=== PATIENT | female | born 1955 | race Caucasian/White ===

== ENCOUNTER 2019-08-01 14:14 | Outpatient (CLI) | payer OTHER ==
--- NOTE | 2019-08-01 14:58 | RAD ---
LEFT KNEE TWO VIEWS: HISTORY: Bilateral primary osteoarthritis of the knee. Bilateral knee pain, right worse than left. FINDINGS: There are degenerative changes in the left knee, manifested by osteophyte formation and joint space n arrowing, most prominent in the medial tibiofemoral compartment. No fracture, dislocation or bony gonzalez truction is seen. IMPRESSION: Left knee osteoarthritis. POS: OFF
--- NOTE | 2019-08-01 15:00 | RAD ---
RIGHT KNEE TWO VIEWS: HISTORY: Bilateral primary osteoarthritis of the knee. Bilateral knee pain, right worse than left. FINDINGS: There are degenerative changes in the right knee, manifested by osteophyte formation and joint space narrowing, most prominent in the medial tibiofemoral compartment. No fracture, dislocation or bony de struction is seen. IMPRESSION: Right knee osteoarthritis. POS: OFF
== END 2019-08-01 14:15 | disposition home or self-care (01) ==
LOC: BICRAD 14:14
PROVIDERS: ATTEND Internal Medicine Rheumatology
DX: M17.0 Bilateral primary osteoarthritis of knee (principal)